=== PATIENT | male | born 1965 | race Caucasian/White ===

== ENCOUNTER 2022-11-25 17:56 | Emergency (ER) | payer MEDICAID ==
[~2022-11-25] VITALS: Ht 175.3 cm; Wt 83.9 kg
[2022-11-25 18:24] VITALS: BP 126/74
[2022-11-25] MEDS ORDERED: IBUPROFEN 600 MG TAB PO ONE (19:35)
[2022-11-25] MEDS ORDERED: IBUP-2213 PO (20:47)
[2022-11-25] MEDS ORDERED: IBUPROFEN 600 MG TAB ONE (22:17)
--- NOTE | 2022-11-25 22:26 | NUR ---
Patient discharged with v/s stable. Written and verbal after care instructions given and explained. Patient verbalized understanding. Ambulatory with steady gait. All questions addressed prior to discharge. Advised to follow up with PMD.
== END 2022-11-25 22:25 | disposition home or self-care (01) ==
LOC: MED 17:56
DX: F10.129 Alcohol abuse with intoxication, unspecified (principal); R07.89 Other chest pain; M25.511 Pain in right shoulder; Y90.9 Presence of alcohol in blood, level not specified
CPT/HCPCS: 71045; 73020; 99284